=== PATIENT | male | born 1990 | race Caucasian/White ===

== ENCOUNTER → 2016-09-01 15:14 | Emergency (ER) | payer OTHER ==
[~2016-09-01 15:14] MED LIST: Aspirin Low Dose CHEW TAB* 81 MG PO ONE; Ibuprofen TAB* 400 MG PO ONE
--- NOTE | 2016-09-01 17:55 | RAD ---
INDICATION: Chest pain COMPARISON: None TECHNIQUE: PA and lateral dual-energy views were obtained. FINDINGS: Bones/Soft Tissues: There are no acute bony findings. Cardiomediastinal: The cardiomediastinal silhouette is normal. Lungs: There are no infiltrates. There is no pneumothorax. Pleura: There are no pleural effusions. Other: None IMPRESSION: NEGATIVE EXAMINATION.
[2016-09-01 18:03] LABS: Hematocrit 47 % (42-52); Hemoglobin 16.2 g/dl (14.0-18.0); Mean Corpuscular HGB Conc 34 g/dl (31-36); Mean Corpuscular Hemoglobin 31 pg (27-31); Mean Corpuscular Volume 90 fL (80-94); Mean Platelet Volume 9 um3 (7.4-10.4); Red Blood Count 5.25 10^6/ul (4.0-5.4); Red Cell Distribution Width 12 % (10.5-15); White Blood Count 9.7 10^3/ul (3.5-10.8)
[2016-09-01 18:18] LABS: Albumin 4.5 g/dL (3.2-5.2); Calcium 9.4 mg/dL (8.6-10.3); EGFR African American 132.9 (>60); EGFR Non-African American 103.3 (>60); Globulin 2.5 g/dL (2-4); Total Bilirubin 0.5 mg/dL (0.2-1.0)
[2016-09-01 18:49] LABS: Potassium 4.1 mmol/L (3.5-5.0)
[2016-09-01 18:54] VITALS: BP 128/74
--- NOTE | 2016-09-01 18:55 | ED ---
Gera Norman Billy, scribed for Jase Oakes MD on 09/01/16 at 1723 . HPI Chest Pain - HPI Summary HPI Summary: Patient is a 26 year-old male coming to [facility] for evaluation of intermittent left anterior chest pain since yesterday. He states that the character of the pain changes with time, but most of the time it is a throbbing pain. It is worse with exertion and movement. He also complains of sharp pain in the left arm and groin with exertion. Pain severity 1/10. Denies N/V/D, constipation, SOB , or dizziness. - History of Current Complaint Chief Complaint: EDChestWallPain Time Seen by Provider: 09/01/16 17:18 Hx Obtained From: Patient Onset/Duration: Started Days Ago Timing: Intermittent Initial Severity: Moderate Current Severity: Moderate Pain Intensity: 1 Pain Scale Used: 0-10 Numeric Chest Pain Location: Left Anterior Character: Other: - Throbbing, changes Aggravating Factor(s): Exertion, Movement Alleviating Factor(s): Nothing Associated Signs and Symptoms: Positive: Chest Pain. Negative: Shortness of Breath, Fever, Chills, Lightheadedness, Nausea, Vomiting - Allergy/Home Medications Allergies/Adverse Reactions: Allergies Allergy/AdvReac Type Severity Reaction Status Date / Time Bee Venom Allergy Anaphylatic Verified 09/23/15 16:28 Shock Doxycycline Allergy Hives Verified 09/23/15 16:28 nuts Allergy Swelling Uncoded 05/19/15 14:26 Of Face,Lips,& Throat PMH/Surg Hx/FS Hx/Imm Hx Endocrine/Hematology History: Denies: Hx Diabetes Cardiovascular History: Reports: Hx Angina Denies: Hx Hypertension Neurological History: Denies: Other Neuro Impairments/Disorders Infectious Disease History: No Infectious Disease History: Denies: Traveled Outside the [place] in Last 30 Days - Family History Known Family History: Positive: Cardiac Disease, Hypertension - Social History Alcohol Use: Rare Substance Use Type: Reports: None Substance Use Comment - Amount & Last Used: Chewing tobacco Hx Tobacco Use: Yes Type: Smokeless Tobacco Review of Systems Negative: Fever, Chills, Skin Diaphoresis Positive: Chest Pain Negative: Shortness Of Breath Negative: Vomiting, Diarrhea, Nausea All Other Systems Reviewed And Are Negative: Yes Physical Exam - Summary Physical Exam Summary: VITAL SIGNS: Reviewed. GENERAL: Patient is a well-developed and nourished male who is lying comfortable in the stretcher. Patient is not in any acute respiratory distress. HEAD AND FACE: No signs of trauma. No ecchymosis, hematomas or skull depressions. No sinus tenderness. EYES: PERRLA, EOMI x 2, No injected conjunctiva, no nystagmus. EARS: Hearing grossly intact. Ear canals and tympanic membranes are within normal limits. MOUTH: Oropharynx within normal limits. NECK: Supple, trachea is midline, no adenopathy, no JVD, no carotid bruit, no c- spine tenderness, neck with full ROM. CHEST: Symmetric, there is clearly reproducible point tenderness with palpation. LUNGS: Clear to auscultation bilaterally. No wheezing or crackles. CVS: Regular rate and rhythm, S1 and S2 present, no murmurs or gallops appreciated. ABDOMEN: Soft, non-tender. No signs of distention. No rebound no guarding, and no masses palpated. Bowel sounds are normal. EXTREMITIES: FROM in all major joints, no edema, no cyanosis or clubbing. NEURO: Alert and oriented x 3. No acute neurological deficits. Speech is normal and follows commands. SKIN: Dry and warm Triage Information Reviewed: Yes Vital Signs On Initial Exam: Initial Vitals Temp Pulse Resp BP Pulse Ox 97.8 F 69 18 127/71 100 09/01/16 15:17 09/01/16 15:17 09/01/16 15:17 09/01/16 15:17 09/01/16 15:17 Vital Signs Reviewed: Yes Diagnostics - Vital Signs Vital Signs Temp Pulse Resp BP Pulse Ox 09/01/16 16:53 98.4 F 66 20 114/63 100 09/01/16 15:17 97.8 F 69 18 127/71 100 - Laboratory Lab Results: Lab Results 09/01/16 09/01/16 09/01/16 Range/Units 17:55 17:55 17:55 WBC 9.7 (3.5-10.8) 10^3/ul RBC 5.25 (4.0-5.4) 10^6/ul Hgb 16.2 (14.0-18.0) g/dl Hct 47 (42-52) % MCV 90 (80-94) fL MCH 31 (27-31) pg MCHC 34 (31-36) g/dl RDW 12 (10.5-15) % Plt Count 295 (150-450) 10^3/ul MPV 9 (7.4-10.4) um3 Neut % (Auto) 55.1 (38-83) % Lymph % (Auto) 29.5 (25-47) % [place] % (Auto) 6.9 (1-9) % Eos % (Auto) 7.5 H (0-6) % Baso % (Auto) 1.0 (0-2) % Absolute Neuts (auto) 5.4 (1.5-7.7) 10^3/ul Absolute Lymphs (auto) 2.9 (1.0-4.8) 10^3/ul Absolute Monos (auto) 0.7 (0-0.8) 10^3/ul Absolute Eos (auto) 0.7 H (0-0.6) 10^3/ul Absolute Basos (auto) 0.1 (0-0.2) 10^3/ul Absolute Nucleated RBC 0 10^3/ul Nucleated RBC % 0 Sodium 137 (133-145) mmol/L Potassium 4.1 (3.5-5.0) mmol/L Chloride 103 (101-111) mmol/L Carbon Dioxide 29 (22-32) mmol/L Anion Gap 5 (2-11) mmol/L BUN 8 (6-24) mg/dL Creatinine 0.89 (0.67-1.17) mg/dL Est GFR ( Amer) 132.9 (>60) Est GFR (Non-Af Amer) 103.3 (>60) BUN/Creatinine Ratio 9.0 (8-20) Glucose 80 (70-100) mg/dL Lactic Acid 0.7 (0.5-2.0) mmol/L Calcium 9.4 (8.6-10.3) mg/dL Total Bilirubin 0.50 (0.2-1.0) mg/dL AST 21 (13-39) U/L ALT 25 (7-52) U/L Alkaline Phosphatase 49 (34-104) U/L Troponin I 0.00 (<0.04) ng/mL Total Protein 7.0 (6.4-8.9) g/dL Albumin 4.5 (3.2-5.2) g/dL Globulin 2.5 (2-4) g/dL Albumin/Globulin Ratio 1.8 (1-3) Result Diagrams: 09/01/16 17:55 09/01/16 17:55 Lab Statement: Any lab studies that have been ordered have been reviewed, and results considered in the medical decision making process. - Radiology CXR Xray Interpretation: No Acute Changes Radiology Interpretation Completed By: Radiologist - EKG 1736 EKG Interpretation: NSR 67 bpm, no STEMI Chest Pain Course/Dx - Course Assessment/Plan: Patient is a 26 year-old male coming to [facility] for evaluation of intermittent left anterior chest pain since yesterday. He states that the character of the pain changes with time, but most of the time it is a throbbing pain. It is worse with exertion and movement. He also complains of sharp pain in the left arm and groin with exertion. Pain severity 1/10. Denies N/V/D, constipation, SOB, or dizziness. Test results WNL. CXR is negative for acute intrathoracic disease. EKG shows NSR without ST elevations. Patient was given ibuprofen in the ED and his symptoms improved. He has no co-morbidities therefore I will be discharging the patient home to follow up with PCP. He was recommended to take ibuprofen and Tylenol for the pain. The patient is hemodynamically stable, A&Ox3. I discussed all the findings and test results with the patient. Patient was instructed to return to the emergency room immediately if any of the symptoms return or worsens. Plan of care was discussed with the patient and understands and agrees. All questions were answered at patient satisfaction. There were no further complaints or concerns. Lung exam before discharge: CTA B/L. Good air exchange. No wheezing or crackles heard. CVS: S1 and S2 present. No murmurs appreciated. Patient is alert and oriented x 3. Patient is hemodynamically stable. Patient will be discharged home with follow up PCP in the next 2-3 days - Chest Pain Differential Diagnosis/HQI/PQRI: Chest Wall, GI Disease, Lower Respiratory Infection - Diagnoses Provider Diagnoses: Atypical chest pain Discharge - Discharge Plan Condition: Stable Disposition: HOME Patient Education Materials: Noncardiac Chest Pain (ED) Referrals: Candido Centeno MD [Primary Care Provider] - The documentation as recorded by the [place]era [place] Billy accurately reflects the service I personally performed and the decisions made by me, Jase Oakes MD.
== END | disposition home or self-care (01) ==
LOC: ED 15:14
DX: R07.89 Other chest pain (principal)
CPT/HCPCS: 36415; 71020; 80053; 83605; 84484; 85025; 93005; 99282; A9270-GY

== ENCOUNTER 2017-01-11 22:05 | Emergency (ER) | payer OTHER ==
[2017-01-11 22:10] VITALS: BP 134/88
== END 2017-01-12 00:24 | disposition left against medical advice (07) ==
LOC: ED 22:05
DX: R42 Dizziness and giddiness (principal); Z53.21 Procedure and treatment not carried out due to patient leaving prior to being seen by health care provider

== ENCOUNTER 2017-05-16 20:09 | Emergency (ER) | payer OTHER ==
[2017-05-16 20:45] VITALS: BP 117/78
--- NOTE | 2017-05-16 21:45 | UC ---
Minor Trauma HPI - HPI Summary HPI Summary: 27 yo male slipped on steps this AM no LOC c/o right hemicranial MOHAN has taken aleve no n/v some trouble concentration no neck pain had a concussion age 18 - History of Current Complaint Chief Complaint: UCHeadInjury Stated Complaint: HEAD & BACK INJURIES FROM FALL Time Seen by Provider: 05/16/17 21:44 Hx Obtained From: Patient Onset/Duration: Sudden Onset, Lasting Hours Onset Of Pain: Immediate Severity Initially: Severe Severity Currently: Moderate Pain Intensity: 7 Pain Scale Used: 0-10 Numeric Mechanism Of Injury: Fall From A Standing Position Aggravating Factor(s): Ambulation Alleviating Factor(s): OTC Meds, Rest Associated Signs And Symptoms: Negative: Loss Of Consciousness, Ecchymosis, Swelling - Risk Factors Penetrating Injury Risk Factors: Negative - Allergies/Home Medications Allergies/Adverse Reactions: Allergies Allergy/AdvReac Type Severity Reaction Status Date / Time bee venom protein (honey bee) Allergy Anaphylatic Verified 05/16/17 20:35 Shock doxycycline Allergy Hives Verified 05/16/17 20:35 nuts Allergy Swelling Uncoded 01/11/17 22:10 Of Face,Lips,& Throat Home Medications: Home Medications Ibuprofen TAB* [Motrin TAB* 600 MG] 400 mg PO Q6H PRN 05/16/17 [History Confirmed 05/16/17] PMH/Surg Hx/FS Hx/Imm Hx Previously Healthy: Yes - Surgical History Surgical History: None Surgery Procedure, Year, and Place: endoscopy 2016 - Family History Known Family History: Positive: Cardiac Disease, Hypertension - Social History Alcohol Use: Rare Substance Use Type: None Substance Use Comment - Amount & Last Used: Chewing tobacco Smoking Status (MU): Never Smoked Tobacco Type: Smokeless Tobacco Amount Used/How Often: 1 can/ day Review of Systems Constitutional: Negative Skin: Negative Eyes: Negative ENT: Negative Respiratory: Negative Cardiovascular: Negative Gastrointestinal: Negative Genitourinary: Negative Motor: Negative Neurovascular: Negative Musculoskeletal: Negative Neurological: Headache Psychological: Negative Is Patient Immunocompromised?: No All Other Systems Reviewed And Are Negative: Yes Physical Exam Triage Information Reviewed: Yes Appearance: Well-Appearing, No Pain Distress, Well-Nourished Vital Signs: Initial Vital Signs Temp 98.4 F 05/16/17 20:36 Pulse 65 05/16/17 20:36 Resp 16 05/16/17 20:36 BP 117/78 05/16/17 20:36 Pulse Ox 100 05/16/17 20:36 Vital Signs Reviewed: Yes Eyes: Positive: Conjunctiva Clear, Other: - eomi/perrl, fundi - sharp discs ENT: Positive: Hearing grossly normal. Negative: Nasal congestion, Nasal drainage, Dental tenderness, Sinus tenderness, Uvula midline Neck: Positive: Supple, Nontender, No Lymphadenopathy Respiratory: Positive: Lungs clear, Normal breath sounds, No respiratory distress, No accessory muscle use Cardiovascular: Positive: RRR, No Murmur Musculoskeletal: Positive: ROM Intact, No Edema Neurological Exam: Normal Neurological: Positive: Alert, Muscle Tone Normal, Other: - normal gait/cn2-12 intact/strenght5/5, sensory intact, dtrs = bilat, (-) Rhomberg alert and answers questions appropriately, GCS 15/15 Psychological Exam: Normal Skin Exam: Normal Skin: Positive: Other - no scalp hematoma Minor Trauma Course/Dx - Differential Dx/Diagnosis Provider Diagnoses: concussion Discharge - Discharge Plan Condition: Stable Disposition: HOME Patient Education Materials: Concussion (ED) Forms: *Work Release Referrals: Candido Centeno MD [Primary Care Provider] - As Soon As Possible (recheck this week ) Additional Instructions: recheck this week recheck TATIANA for new or worsening symptoms
== END 2017-05-16 22:20 | disposition home or self-care (01) ==
LOC: UCEAST 20:09
DX: S06.0X0A Concussion without loss of consciousness, initial encounter (principal); W10.9XXA Fall (on) (from) unspecified stairs and steps, initial encounter; Y93.9 Activity, unspecified; Y92.9 Unspecified place or not applicable; F17.220 Nicotine dependence, chewing tobacco, uncomplicated
CPT/HCPCS: 99211; G0463

== ENCOUNTER → 2017-12-29 20:54 | Emergency (ER) | payer OTHER ==
[2017-12-29 21:05] VITALS: BP 135/89
== END | disposition left against medical advice (07) ==
LOC: ED 20:54
DX: S09.93XA Unspecified injury of face, initial encounter (principal); Z53.21 Procedure and treatment not carried out due to patient leaving prior to being seen by health care provider

== ENCOUNTER 2018-02-11 21:52 | Emergency (ER) | payer OTHER ==
[2018-02-11] MEDS ORDERED: Dexamethasone IV* 4 MG/ML 1 ML (4 MG) IV SLOW PU ONE (22:03)
[2018-02-11] MEDS ORDERED: Famotidine IV* 10 MG/ML 2 ML (20 mg) IV SLOW PU ONE (22:03)
[2018-02-11] MEDS ORDERED: NS 0.9% 1000 ML* 1,000 ML IV ONE (22:04)
[2018-02-11 23:59] VITALS: BP 102/66
--- NOTE | 2018-02-12 02:05 | ED ---
Allergic Reaction/Systemic - HPI Summary HPI Summary: Patient is a 27-year-old male presenting to the ED with a possible allergic reaction. He states he ate a cookie earlier which may have had some nuts in the frosting. He is allergic to nuts. He states approximately one hour after eating the cookie he began to feel some throat tightness. He states this happened in the past when he has inadvertently eaten nuts unknowingly. He denies any chest pain or shortness of breath. Denies any odynophagia, but is endorsing dysphasia. He denies any rash, pruritus or any other symptoms at this time. He has taken a 50 mg Benadryl just [employer]LL[employer] A[employer]LYST. - History of Current Complaint Chief Complaint: EDAllergicReaction Time Seen by Provider: 02/11/18 21:54 Hx Obtained From: Patient Onset/Duration: Sudden Onset Timing: Constant Severity Initially: Moderate Severity Currently: Moderate Pain Intensity: 0 Pain Scale Used: 0-10 Numeric Associated Signs And Symptoms: Positive: Throat Tightening - Related Hx Possible Reaction To: Food - Allergies/Home Medications Allergies/Adverse Reactions: Allergies Allergy/AdvReac Type Severity Reaction Status Date / Time bee venom protein (honey bee) Allergy Anaphylatic Verified 02/11/18 21:56 Shock doxycycline Allergy Hives Verified 02/11/18 21:56 nuts Allergy Swelling Uncoded 12/29/17 21:05 Of Face,Lips,& Throat Home Medications: Home Medications EPINEPHrine [Epipen 2-Hu] 0.3 mg IM ONCE 02/11/18 [History Confirmed 02/11/18] PMH/Surg Hx/FS Hx/Imm Hx Previously Healthy: Yes Endocrine/Hematology History: Denies: Hx Diabetes Cardiovascular History: Reports: Hx Angina Denies: Hx Hypertension Respiratory History: Reports: Hx Asthma Neurological History: Denies: Other Neuro Impairments/Disorders - Surgical History Surgery Procedure, Year, and Place: endoscopy 2016 Infectious Disease History: No Infectious Disease History: Denies: Traveled Outside the [place] in Last 30 Days - Family History Known Family History: Positive: Cardiac Disease, Hypertension - Social History Occupation: Employed Full-time Lives: With Family Alcohol Use: Daily Alcohol Amount: 1 drink Hx Substance Use: No Substance Use Type: Reports: None Substance Use Comment - Amount & Last Used: Chewing tobacco Hx Tobacco Use: Yes Smoking Status (MU): Never Smoked Tobacco Type: Smokeless Tobacco Amount Used/How Often: 1 can/ day Review of Systems Constitutional: Negative Negative: Fever, Chills Positive: Other - throat tightness Negative: Palpitations, Chest Pain Negative: Shortness Of Breath, Cough Genitourinary: Negative Positive: no symptoms reported, see HPI Negative: Arthralgia, Myalgia Skin: Negative Neurological: Negative All Other Systems Reviewed And Are Negative: Yes Physical Exam Triage Information Reviewed: Yes Vital Signs On Initial Exam: Initial Vitals Temp Pulse Resp BP Pulse Ox 97.9 F 84 18 125/102 98 02/11/18 21:53 02/11/18 21:53 02/11/18 21:53 02/11/18 21:53 02/11/18 21:53 Vital Signs Reviewed: Yes Appearance: Positive: Well-Appearing, Well-Nourished Skin: Positive: Warm, Skin Color Reflects Adequate Perfusion Head/Face: Positive: Normal Head/Face Inspection Eyes: Positive: EOMI, GUY, Conjunctiva Clear ENT: Positive: Pharynx normal, Uvula midline. Negative: Pharyngeal erythema, Tonsillar swelling, Tonsillar exudate Neck: Positive: Supple, No Lymphadenopathy Respiratory/Lung Sounds: Positive: Clear to Auscultation, Breath Sounds Present Cardiovascular: Positive: RRR, Pulses are Symmetrical in both Upper and Lower Extremities Musculoskeletal: Positive: Strength/ROM Intact Neurological: Positive: Sensory/Motor Intact, Alert, Oriented to Person Place, Time, Speech Normal Psychiatric: Positive: Affect/Mood Appropriate Diagnostics - Vital Signs Vital Signs Temp Pulse Resp BP Pulse Ox 02/12/18 00:13 98.3 F 79 14 102/66 97 02/12/18 00:08 75 97 02/11/18 23:42 102/66 02/11/18 23:12 59 106/65 97 02/11/18 23:00 70 98 02/11/18 22:42 70 113/76 98 02/11/18 22:12 78 132/88 97 02/11/18 21:53 97.9 F 84 18 125/102 98 - Laboratory Lab Statement: Any lab studies that have been ordered have been reviewed, and results considered in the medical decision making process. Allergic Reaction Course/Dx - Course Course Of Treatment: On arrival, patient is given famotidine, Decadron as well as normal saline. After approximately 1.5 hours, he states he is feeling much improved. No pharyngeal erythema. Mallampati score 1. Chest CTA. RRR. Patient appears well and nondiaphoretic. He'll be discharged at this time with allergic reaction. - Diagnoses Provider Diagnoses: Allergic reaction Discharge - Sign-Out/Discharge Documenting (check all that apply): Patient Departure - Discharge Plan Condition: Stable Disposition: HOME Referrals: Candido Centeno MD [Primary Care Provider] - Additional Instructions: Please return if you develop any worsening symptoms - Billing Disposition and Condition Condition: STABLE Disposition: Home
== END 2018-02-12 00:13 | disposition home or self-care (01) ==
LOC: ED 21:52
DX: T78.40XA Allergy, unspecified, initial encounter (principal); X58.XXXA Exposure to other specified factors, initial encounter; F17.220 Nicotine dependence, chewing tobacco, uncomplicated; R07.0 Pain in throat
CPT/HCPCS: 96361; 96374; 96375; 99283; J1100

== ENCOUNTER 2018-06-17 06:47 | Emergency (ER) | payer OTHER ==
[2018-06-17] MEDS ORDERED: Ketorolac INJ* 30 MG/ML 1 ML VIAL IV PUSH ONE (07:30)
[2018-06-17] MEDS ORDERED: Ondansetron INJ* 2 MG/ML VIAL IV ONE (07:30)
[2018-06-17] MEDS ORDERED: NS 0.9% 1000 ML** 1,000 ML IV ONE (07:30)
[2018-06-17 08:00] LABS: ABS Basophils 0 10^3/ul (0-0.2); ABS Eosinophils 0.2 10^3/ul (0-0.6); ABS Lymphocytes 0.9 10^3/ul (1.0-4.8); ABS Monocytes 0.7 10^3/ul (0-0.8); ABS Neutrophils 5.8 10^3/ul (1.5-7.7); ABS Nucleated RBC 0 10^3/ul; Hematocrit 49 % (36-46); Hemoglobin 16.5 g/dL (14.0-18.0); Lymphocyte % 11.8 %; Mean Corpuscular HGB Conc 34 g/dL (31-36); Mean Corpuscular Hemoglobin 31 pg (27-31); Mean Corpuscular Volume 91 fL (80-94); Mean Platelet Volume 8.9 fL (7.4-10.4); Nucleated Red Blood Cells % 0; Platelet Count 239 10^3/uL (150-450); Red Blood Count 5.35 10^6 /uL (4.18-5.48); Red Cell Distribution Width 13 % (10.5-15); White Blood Count 7.6 10^3/uL (3.5-10.8)
[2018-06-17 08:04] LABS: Urine Appearance Clear; Urine Bilirubin Negative (Negative); Urine Blood Negative (Negative); Urine Color Amber; Urine Glucose Negative (Negative); Urine Ketones Negative (Negative); Urine Nitrite Negative (Negative); Urine Protein Negative (Negative); Urine Specific Gravity 1.033 (1.010-1.030); Urine Urobilinogen Positive (Negative)
[2018-06-17 08:14] LABS: Albumin 4.6 g/dL (3.2-5.2); Albumin/Globulin Ratio 1.8 (1-3); BUN/Creatinine Ratio 13.7 (8-20); C Reactive Protein 12.11 mg/L (<8.01); Calcium 8.9 mg/dL (8.6-10.3); EGFR African American 114.2 (>60); EGFR Non-African American 94.4 (>60); Globulin 2.6 g/dL (2-4); Potassium 3.8 mmol/L (3.5-5.0); Total Bilirubin 0.8 mg/dL (0.2-1.0); Total Protein 7.2 g/dL (6.4-8.9)
[2018-06-17 08:15] LABS: Influenza A Molecular NEGATIVE (Negative); Influenza B Molecular NEGATIVE (Negative)
[2018-06-17] MEDS ORDERED: Pantoprazole IV* 40 MG IV ONE (08:20)
[2018-06-17] MEDS ORDERED: Al Hydrox/Mg Hydrox/Simet LIQ* 30 ML UDC PO ONE (08:20)
[2018-06-17] MEDS ORDERED: Acetaminophen TAB* 325 MG PO ONE (08:20)
[2018-06-17 10:04] VITALS: BP 112/64
--- NOTE | 2018-06-17 10:27 | ED ---
Abdominal Pain/Male - HPI Summary HPI Summary: Patient is a 28-year-old male who presents to the ED with acute onset abdominal pain, nausea, vomiting, diarrhea 3 hours. He endorses sick contact of influenza 3 days ago. He denies any fevers, sweats, chills. He denies any abdominal surgeries. He states the abdominal pain is most located in the mid abdomen which is nonradiating. He denies any urinary symptoms or back pain. He denies any chest pain, SOB. He denies any weakness. Endorses emesis x 5 this morning however this has since resolved. - History of Current Complaint Chief Complaint: EDAbdPain Stated Complaint: STOMACH IS IN ALOT OF PAIN PER PT Time Seen by Provider: 06/17/18 06:56 Hx Obtained From: Patient Onset/Duration: Sudden Onset Timing: Constant Severity Initially: Moderate Severity Currently: Moderate Pain Intensity: 1 Pain Scale Used: 0-10 Numeric Location: Epigastric, Other - mid abdomen Radiates: No Alleviating Factor(s): Nothing Associated Signs And Symptoms: Positive: Negative - Risk Factors Testicular Torsion: Negative - Allergies/Home Medications Allergies/Adverse Reactions: Allergies Allergy/AdvReac Type Severity Reaction Status Date / Time bee venom protein (honey bee) Allergy Anaphylatic Verified 06/17/18 06:51 Shock doxycycline Allergy Hives Verified 06/17/18 06:51 nuts Allergy Swelling Uncoded 06/17/18 06:51 Of Face,Lips,& Throat Home Medications: Home Medications Pantoprazole TAB * [Protonix TAB*] 40 mg PO DAILY 06/17/18 [History Confirmed ] PMH/Surg Hx/FS Hx/Imm Hx Previously Healthy: Yes Endocrine/Hematology History: Denies: Hx Diabetes Cardiovascular History: Reports: Hx Angina Denies: Hx Hypertension Respiratory History: Reports: Hx Asthma Neurological History: Denies: Other Neuro Impairments/Disorders - Surgical History Surgery Procedure, Year, and Place: endoscopy 2016 - Immunization History Hx Pertussis Vaccination: No Immunizations Up to Date: Yes - items there is no Infectious Disease History: No Infectious Disease History: Denies: Traveled Outside the [place] in Last 30 Days - Family History Known Family History: Positive: Cardiac Disease, Hypertension - Social History Occupation: Employed Full-time Lives: Alone Alcohol Use: Occasionally Alcohol Amount: 1 drink Hx Substance Use: No Substance Use Type: Reports: None Substance Use Comment - Amount & Last Used: Chewing tobacco Hx Tobacco Use: Yes Smoking Status (MU): Never Smoked Tobacco Type: Smokeless Tobacco Amount Used/How Often: 1 can/ day Review of Systems Negative: Fever, Chills, Fatigue, Skin Diaphoresis Negative: Epistaxis, Dental Pain Negative: Palpitations, Chest Pain Negative: Shortness Of Breath, Cough Positive: Abdominal Pain, Diarrhea, Nausea. Negative: Vomiting Negative: Arthralgia, Myalgia Skin: Negative Neurological: Negative All Other Systems Reviewed And Are Negative: Yes Physical Exam Triage Information Reviewed: Yes Vital Signs On Initial Exam: Initial Vitals Temp Pulse Resp BP Pulse Ox 97.8 F 82 16 116/79 96 06/17/18 06:48 06/17/18 06:48 06/17/18 06:48 06/17/18 06:48 06/17/18 06:48 Vital Signs Reviewed: Yes Appearance: Positive: Well-Appearing, No Pain Distress Skin: Positive: Warm, Skin Color Reflects Adequate Perfusion Head/Face: Positive: Normal Head/Face Inspection Eyes: Positive: EOMI, GUY, Conjunctiva Clear Neck: Positive: Supple, No Lymphadenopathy Respiratory/Lung Sounds: Positive: Clear to Auscultation, Breath Sounds Present Cardiovascular: Positive: RRR, Pulses are Symmetrical in both Upper and Lower Extremities Abdomen Description: Positive: Other: - Tenderness throughout the mid abdomen, no tenderness to the RLQ or RUQ. Negative Gardner sign. Negative tenderness at McBurney's point.. Negative: CVA Tenderness (R), CVA Tenderness (L), McBurney' s Point Tenderness Bowel Sounds: Positive: Present Musculoskeletal: Positive: Normal, Strength/ROM Intact Neurological: Positive: Alert, Oriented to Person Place, Time Psychiatric: Positive: Normal AVPU Assessment: Alert Diagnostics - Vital Signs Vital Signs Temp Pulse Resp BP Pulse Ox 06/17/18 10:04 97.7 F 60 16 112/64 98 06/17/18 10:00 112/64 06/17/18 09:30 105/67 06/17/18 09:03 103/72 06/17/18 08:30 108/64 06/17/18 08:00 110/70 06/17/18 07:31 91 115/78 97 06/17/18 07:15 74 114/79 95 06/17/18 07:14 73 118/74 97 06/17/18 07:13 79 96 06/17/18 06:48 97.8 F 82 16 116/79 96 - Laboratory Lab Results: Lab Results 06/17/18 06/17/18 06/17/18 Range/Units 07:47 07:47 07:48 WBC 7.6 (3.5-10.8) 10^3/uL RBC 5.35 (4.18-5.48) 10^6 /uL Hgb 16.5 (14.0-18.0) g/dL Hct 49 H (36-46) % MCV 91 (80-94) fL MCH 31 (27-31) pg MCHC 34 (31-36) g/dL RDW 13 (10.5-15) % Plt Count 239 (150-450) 10^3/uL MPV 8.9 (7.4-10.4) fL Neut % (Auto) 76.3 % Lymph % (Auto) 11.8 % [place] % (Auto) 9.6 % Eos % (Auto) 2.0 % Baso % (Auto) 0.3 % Absolute Neuts (auto) 5.8 (1.5-7.7) 10^3/ul Absolute Lymphs (auto) 0.9 L (1.0-4.8) 10^3/ul Absolute Monos (auto) 0.7 (0-0.8) 10^3/ul Absolute Eos (auto) 0.2 (0-0.6) 10^3/ul Absolute Basos (auto) 0 (0-0.2) 10^3/ul Absolute Nucleated RBC 0 10^3/ul Nucleated RBC % 0 Sodium 139 (135-145) mmol/L Potassium 3.8 (3.5-5.0) mmol/L Chloride 106 (101-111) mmol/L Carbon Dioxide 28 (22-32) mmol/L Anion Gap 5 (2-11) mmol/L BUN 13 (6-24) mg/dL Creatinine 0.95 (0.67-1.17) mg/dL Est GFR ( Amer) 114.2 (>60) Est GFR (Non-Af Amer) 94.4 (>60) BUN/Creatinine Ratio 13.7 (8-20) Glucose 95 (70-100) mg/dL Lactic Acid (0.5-2.0) mmol/L Calcium 8.9 (8.6-10.3) mg/dL Total Bilirubin 0.80 (0.2-1.0) mg/dL AST 20 (13-39) U/L ALT 24 (7-52) U/L Alkaline Phosphatase 51 (34-104) U/L C-Reactive Protein 12.11 H (<8.01) mg/L Total Protein 7.2 (6.4-8.9) g/dL Albumin 4.6 (3.2-5.2) g/dL Globulin 2.6 (2-4) g/dL Albumin/Globulin Ratio 1.8 (1-3) Urine Color [place] Urine Appearance Clear Urine pH 5.0 (5-9) Ur Specific [place] 1.033 H (1.010-1.030) Urine Protein Negative (Negative) Urine Ketones Negative (Negative) Urine Blood Negative (Negative) Urine Nitrate Negative (Negative) Urine Bilirubin Negative (Negative) Urine Urobilinogen Positive A (Negative) Ur Leukocyte Esterase Negative (Negative) Urine Glucose Negative (Negative) Influenza A (Rapid) (Negative) Influenza B (Rapid) (Negative) 06/17/18 06/17/18 Range/Units 07:48 08:04 WBC (3.5-10.8) 10^3/uL RBC (4.18-5.48) 10^6 /uL Hgb (14.0-18.0) g/dL Hct (36-46) % MCV (80-94) fL MCH (27-31) pg MCHC (31-36) g/dL RDW (10.5-15) % Plt Count (150-450) 10^3/uL MPV (7.4-10.4) fL Neut % (Auto) % Lymph % (Auto) % [place] % (Auto) % Eos % (Auto) % Baso % (Auto) % Absolute Neuts (auto) (1.5-7.7) 10^3/ul Absolute Lymphs (auto) (1.0-4.8) 10^3/ul Absolute Monos (auto) (0-0.8) 10^3/ul Absolute Eos (auto) (0-0.6) 10^3/ul Absolute Basos (auto) (0-0.2) 10^3/ul Absolute Nucleated RBC 10^3/ul Nucleated RBC % Sodium (135-145) mmol/L Potassium (3.5-5.0) mmol/L Chloride (101-111) mmol/L Carbon Dioxide (22-32) mmol/L Anion Gap (2-11) mmol/L BUN (6-24) mg/dL Creatinine (0.67-1.17) mg/dL Est GFR ( Amer) (>60) Est GFR (Non-Af Amer) (>60) BUN/Creatinine Ratio (8-20) Glucose (70-100) mg/dL Lactic Acid 0.6 (0.5-2.0) mmol/L Calcium (8.6-10.3) mg/dL Total Bilirubin (0.2-1.0) mg/dL AST (13-39) U/L ALT (7-52) U/L Alkaline Phosphatase (34-104) U/L C-Reactive Protein (<8.01) mg/L Total Protein (6.4-8.9) g/dL Albumin (3.2-5.2) g/dL Globulin (2-4) g/dL Albumin/Globulin Ratio (1-3) Urine Color Urine Appearance Urine pH (5-9) Ur Specific [place] (1.010-1.030) Urine Protein (Negative) Urine Ketones (Negative) Urine Blood (Negative) Urine Nitrate (Negative) Urine Bilirubin (Negative) Urine Urobilinogen (Negative) Ur Leukocyte Esterase (Negative) Urine Glucose (Negative) Influenza A (Rapid) Negative (Negative) Influenza B (Rapid) Negative (Negative) Result Diagrams: 06/17/18 07:47 06/17/18 07:47 Lab Statement: Any lab studies that have been ordered have been reviewed, and results considered in the medical decision making process. Abdominal Pain Male Course/Dx - Course Course Of Treatment: During this patient's course of treatment, he is evaluated for mid abdominal pain, nausea, vomiting, diarrhea. Flu swab negative. Labs obtained which are unremarkable. He is given fluids and Zofran with good relief. He continues to endorse epigastric pain. He is given Maalox and Protonix. He states his symptoms have improved. He will be discharged home with a prescription for Zofran, diagnosis of nausea and vomiting and a note is given for work. - Diagnoses Differential Diagnosis/HQI/PQRI: Other - Nausea and vomiting, diarrhea, viral syndrome Provider Diagnoses: Nausea and vomiting, Diarrhea Discharge - Sign-Out/Discharge Documenting (check all that apply): Patient Departure Patient Received Moderate/Deep Sedation with Procedure: No - Discharge Plan Condition: Stable Disposition: HOME Prescriptions: Ondansetron ODT TAB* [Zofran 4 MG Odt TAB*] 4 mg PO Q6H PRN #12 tab.odt MDD 4 PRN Reason: Nausea Patient Education Materials: Acute Nausea and Vomiting (ED) Forms: *Work Release Referrals: Candido Centeno MD [Primary Care Provider] - Additional Instructions: Continue your zofran as needed for nausea Maalox plus over the counter every 4 hours as needed for abdominal discomfort Return to the ED if symptoms worsen - Billing Disposition and Condition Condition: STABLE Disposition: Home
== END 2018-06-17 10:04 | disposition home or self-care (01) ==
LOC: ED 06:47
DX: R11.2 Nausea with vomiting, unspecified (principal); R19.7 Diarrhea, unspecified; R10.9 Unspecified abdominal pain; Z72.0 Tobacco use
CPT/HCPCS: 36415; 80053; 81003; 83605; 85025; 86140; 96361; 96374; 96375; 99283; A9270-GY; J1885; J2405

== ENCOUNTER 2019-05-14 01:36 | Emergency (ER) | payer OTHER ==
[2019-05-14 02:24] LABS: ABS Eosinophils 0.7 10^3/ul (0-0.6); ABS Lymphocytes 2.3 10^3/ul (1.0-4.8); ABS Monocytes 0.6 10^3/ul (0-0.8); ABS Neutrophils 3.5 10^3/ul (1.5-7.7); Eosinophil % 9.3 %; Hematocrit 46 % (42-52); Hemoglobin 15.8 g/dL (14.0-18.0); Lymphocyte % 32.5 %; Mean Corpuscular HGB Conc 35 g/dL (31-36); Mean Corpuscular Hemoglobin 31 pg (27-31); Mean Corpuscular Volume 89 fL (80-94); Mean Platelet Volume 8.3 fL (7.4-10.4); Nucleated Red Blood Cells % 0.1; Platelet Count 311 10^3/uL (150-450); Red Blood Count 5.15 10^6 /uL (4.18-5.48); Red Cell Distribution Width 13 % (10-15); White Blood Count 7.1 10^3/uL (3.5-10.8)
[2019-05-14 02:29] LABS: INR 0.9 (0.82-1.09)
[2019-05-14 02:42] LABS: Albumin 4.9 g/dL (3.2-5.2); Albumin/Globulin Ratio 1.9 (1-3); BUN/Creatinine Ratio 16.5 (8-20); Calcium 9.8 mg/dL (8.6-10.3); EGFR African American 110.7 (>60); EGFR Non-African American 91.5 (>60); Globulin 2.6 g/dL (2-4); Total Bilirubin 0.4 mg/dL (0.2-1.0); Total Protein 7.5 g/dL (6.4-8.9)
--- NOTE | 2019-05-14 04:00 | ED ---
HPI Chest Pain - HPI Summary HPI Summary: This patient is a 29 year old M presenting to ED with a chief complaint of chest pain since 0130 this morning. Patient went to bed at 2000 and he was fine yesterday. Patient was sleeping when he woke up to the pain, which he describes as a sharp pain. Patient felt like his heart was racing, and then his whole body got warm. Patient also had left-sided facial numbness that has since resolved. Patient reports mild nausea and room-spinning dizziness that lasted about 20 minutes and have since faded away. Patient states the chest pain is still present but it has begun to fade away. Three weeks ago patient had bronchitis. Patient does not have a cardiac history. Patient reports he also gets [id number] pretty easily, but that has been going on for the past 3 months. He attributes that to being out of shape. The patient rates the pain 4/ 10 in severity. Symptoms aggravated by nothing. Symptoms alleviated by nothing. - History of Current Complaint Chief Complaint: EDChestPainROMI Hx Obtained From: Patient Onset/Duration: Started Hours Ago - At 0130 this morning, Still Present Time of Onset: 01:30 Timing: Constant, Lasting Hours - Since 013 Initial Severity: Moderate Current Severity: Moderate Pain Intensity: 4 Pain Scale Used: 0-10 Numeric Character: Fast Aggravating Factor(s): Nothing Alleviating Factor(s): Nothing Associated Signs and Symptoms: Positive: Chest Pain, Numbness - Left-side face, Dizziness, Nausea, Other: - Whole-body warmness - Allergy/Home Medications Allergies/Adverse Reactions: Allergies Allergy/AdvReac Type Severity Reaction Status Date / Time bee venom protein (honey bee) Allergy Anaphylatic Verified 05/14/19 04:13 Shock doxycycline Allergy Hives Verified 05/14/19 04:13 nuts Allergy Swelling Uncoded 05/14/19 04:13 Of Face,Lips,& Throat PMH/Surg Hx/FS Hx/Imm Hx Endocrine/Hematology History: Denies: Hx Diabetes Cardiovascular History: Reports: Hx Angina Denies: Hx Hypertension Respiratory History: Reports: Hx Asthma Neurological History: Denies: Other Neuro Impairments/Disorders - Surgical History Surgery Procedure, Year, and Place: endoscopy 2016 Infectious Disease History: No Infectious Disease History: Denies: Traveled Outside the [place] in Last 30 Days - Family History Known Family History: Positive: Cardiac Disease, Hypertension - Social History Alcohol Use: Occasionally Alcohol Amount: 1 drink Hx Substance Use: No Substance Use Type: Reports: None Substance Use Comment - Amount & Last Used: Chewing tobacco Hx Tobacco Use: Yes Smoking Status (MU): Never Smoked Tobacco Type: Smokeless Tobacco Amount Used/How Often: 1 can/ day Review of Systems Constitutional: Other - Whole body warmness Cardiovascular: Other - Heart racing Positive: Chest Pain Positive: Nausea Neurological: Other - Left-sided facial numbness, room-spinning dizziness All Other Systems Reviewed And Are Negative: Yes Physical Exam - Summary Physical Exam Summary: Appearance: Well-appearing, Well-nourished, lying in bed comfortable Skin: Warm, dry, no obvious rash Eyes: sclera anicteric, no conjunctival pallor ENT: mucous membranes moist Neck: deferred Respiratory: No signs of respiratory distress Cardiovascular: Appears well perfused, pulses are nml Abdomen: deferred Musculoskeletal: Moving all 4 extremities without obvious discomfort Neurological: Awake and alert, mentation is normal, speech is fluent and appropriate Psychiatric: affect is normal, does not appear anxious or depressed Triage Information Reviewed: Yes Vital Signs On Initial Exam: Initial Vitals Temp Pulse Resp BP Pulse Ox 98.0 F 76 16 147/92 100 05/14/19 01:47 05/14/19 01:47 05/14/19 01:47 05/14/19 01:47 05/14/19 01:47 Vital Signs Reviewed: Yes Procedures - Sedation Patient Received Moderate/Deep Sedation with Procedure: No Diagnostics - Vital Signs Vital Signs Temp Pulse Resp BP Pulse Ox 05/14/19 01:47 98.0 F 76 16 147/92 100 - Laboratory Lab Results: Lab Results 05/14/19 05/14/19 05/14/19 Range/Units 02:18 02:18 02:18 WBC 7.1 (3.5-10.8) 10^3/uL RBC 5.15 (4.18-5.48) 10^6 /uL Hgb 15.8 (14.0-18.0) g/dL Hct 46 (42-52) % MCV 89 (80-94) fL MCH 31 (27-31) pg MCHC 35 (31-36) g/dL RDW 13 (10-15) % Plt Count 311 (150-450) 10^3/uL MPV 8.3 (7.4-10.4) fL Neut % (Auto) 48.9 % Lymph % (Auto) 32.5 % [place] % (Auto) 9.0 % Eos % (Auto) 9.3 % Baso % (Auto) 0.3 % Absolute Neuts (auto) 3.5 (1.5-7.7) 10^3/ul Absolute Lymphs (auto) 2.3 (1.0-4.8) 10^3/ul Absolute Monos (auto) 0.6 (0-0.8) 10^3/ul Absolute Eos (auto) 0.7 H (0-0.6) 10^3/ul Absolute Basos (auto) 0.0 (0-0.2) 10^3/ul Absolute Nucleated RBC 0.0 10^3/ul Nucleated RBC % 0.1 INR (Anticoag Therapy) 0.90 (0.82-1.09) Sodium 139 (135-145) mmol/L Potassium 4.0 (3.5-5.0) mmol/L Chloride 105 (101-111) mmol/L Carbon Dioxide 28 (22-32) mmol/L Anion Gap 6 (2-11) mmol/L BUN 16 (6-24) mg/dL Creatinine 0.97 (0.67-1.17) mg/dL Est GFR ( Amer) 110.7 (>60) Est GFR (Non-Af Amer) 91.5 (>60) BUN/Creatinine Ratio 16.5 (8-20) Glucose 98 (70-100) mg/dL Calcium 9.8 (8.6-10.3) mg/dL Total Bilirubin 0.40 (0.2-1.0) mg/dL AST 19 (13-39) U/L ALT 25 (7-52) U/L Alkaline Phosphatase 52 (34-104) U/L Troponin I 0.00 (<0.03) ng/mL Total Protein 7.5 (6.4-8.9) g/dL Albumin 4.9 (3.2-5.2) g/dL Globulin 2.6 (2-4) g/dL Albumin/Globulin Ratio 1.9 (1-3) Result Diagrams: 05/14/19 02:18 05/14/19 02:18 Lab Statement: Any lab studies that have been ordered have been reviewed, and results considered in the medical decision making process. - Radiology CXR Radiology Interpretation Completed By: ED Physician Summary of Radiographic Findings: No acute processes, pending official radiology report. - EKG 134 Cardiac Rate: NL - 76 BPM EKG Rhythm: Sinus Rhythm ST Segment: Normal Ectopy: None Summary of EKG Findings: NSR at 76 BPM, P waves, QRS complex, and T waves are within normal limits, T waves and intervals are normal, no ischemic changes. This is a normal EKG. Dr. Waters has reviewed and interpreted this EKG. Chest Pain Course/Dx - Course Course Of Treatment: This patient is a 29 year old M presenting to ED with a chief complaint of chest pain since 0130 this morning. No acute processes, pending official radiology report. Blood work revealed absolute eosinophils 0.7. An EKG at 0135 revealed: NSR at 76 BPM, P waves, QRS complex, and T waves are within normal limits, T waves and intervals are normal, no ischemic changes. This is a normal EKG. Troponin 0.00. Patient will be discharged home with dx of chest pain. Patient understands and agrees with this plan. - Diagnoses Provider Diagnoses: Chest pain Discharge ED - Sign-Out/Discharge Documenting (check all that apply): Patient Departure - Discharge - Discharge Plan Condition: Good Disposition: HOME Patient Education Materials: Chest Pain (ED) Referrals: Candido Centeno MD [Primary Care Provider] - 1 Week - Billing Disposition and Condition Condition: GOOD Disposition: Home - Attestation Statements Document Initiated by Preet: Yes Documenting Scribe: Felix Baugh Provider For Whom Preet is Documenting (Include Credential): Paddy Waters MD Scribe Attestation: Felix Norman, scribed for Paddy Waters MD on 05/15/19 at 0059. Scribe Documentation Reviewed: Yes Provider Attestation: The documentation as recorded by the Felix [place] accurately reflects the service I personally performed and the decisions made by me, Paddy Waters MD Status of Scribkory Document: Viewed
[2019-05-14 04:13] VITALS: BP 130/87
== END 2019-05-14 04:10 | disposition home or self-care (01) ==
LOC: ED 01:36
DX: R07.9 Chest pain, unspecified (principal); J45.909 Unspecified asthma, uncomplicated; F17.290 Nicotine dependence, other tobacco product, uncomplicated; Z88.1 Allergy status to other antibiotic agents
CPT/HCPCS: 36415; 71046; 80053; 84484; 85025; 85610; 93005; 99283

== ENCOUNTER 2019-11-28 12:16 | Observation (INO) ==
[2019-11-28] MEDS ORDERED: NS 0.9% 1000 ml BAG 1,000 ML IV ONE (12:18)
[2019-11-28] MEDS ORDERED: Iodixanol (CONTRAST) 320 MG/ML 100 ML SDV IV ONE (12:34)
[2019-11-28 12:35] LABS: ABS Basophils 0.1 10^3/ul (0-0.2); ABS Eosinophils 0.6 10^3/ul (0-0.6); ABS Lymphocytes 1.9 10^3/ul (1.0-4.8); ABS Monocytes 0.7 10^3/ul (0-0.8); ABS Neutrophils 3.4 10^3/ul (1.5-7.7); Eosinophil % 8.8 %; Hematocrit 47 % (42-52); Lymphocyte % 29.1 %; Mean Corpuscular HGB Conc 35 g/dL (31-36); Mean Corpuscular Hemoglobin 31 pg (27-31); Mean Corpuscular Volume 89 fL (80-94); Mean Platelet Volume 8.9 fL (7.4-10.4); Nucleated Red Blood Cells % 0.1; Platelet Count 282 10^3/uL (150-450); Red Blood Count 5.22 10^6 /uL (4.18-5.48); Red Cell Distribution Width 13 % (10-15); White Blood Count 6.6 10^3/uL (3.5-10.8)
[2019-11-28 12:57] LABS: Albumin 4.6 g/dL (3.2-5.2); Albumin/Globulin Ratio 1.8 (1-3); BUN/Creatinine Ratio 13.6 (8-20); Calcium 9.4 mg/dL (8.6-10.3); EGFR African American 123.9 (>60); EGFR Non-African American 102.4 (>60); Globulin 2.5 g/dL (2-4); HDL Cholesterol 32.9 mg/dL; Potassium 3.9 mmol/L (3.5-5.0); Total Bilirubin 0.7 mg/dL (0.2-1.0); Total Protein 7.1 g/dL (6.4-8.9)
[2019-11-28 13:04] LABS: Activated Partial Thrombo Time 32.1 seconds (26.0-38.0); INR 0.98 (0.82-1.09)
[2019-11-28 14:45] LABS: TSH Ultra Thyroid Stim Horm 2.43 mcIU/mL (0.34-5.60)
[2019-11-28 14:48] LABS: Free T4 1.1 ng/dL (0.61-1.12)
[2019-11-28 16:19] LABS: Urine Appearance Clear; Urine Bilirubin Negative (Negative); Urine Blood Negative (Negative); Urine Color Colorless; Urine Glucose Negative (Negative); Urine Ketones Negative (Negative); Urine Nitrite Negative (Negative); Urine Protein Negative (Negative); Urine Urobilinogen Negative (Negative)
[2019-11-29 16:11] VITALS: BP 124/67
== END 2019-11-29 16:55 | disposition home or self-care (01) ==
LOC: MEDTELE 12:16 → ED 12:16 → MEDTELE 16:25
PROVIDERS: ADMIT Internal Medicine; ATTEND Internal Medicine